=== PATIENT | male | born 2000 | race Caucasian/White ===

== ENCOUNTER 2021-02-28 21:39 | Emergency (ER) | payer BC ==
[2021-02-28 23:07] LABS: BASO # 0.03 (0.02-0.10); EOS % 2.6 % (0.0-4.0); HEMATOCRIT 43.8 % (36.0-47.0); HEMOGLOBIN 14.4 g/dL (12.5-16.1); MEAN CELL VOLUME 88 fl (78-95); MEAN CORPUSCULAR HEMOGLOBIN 29 pg (26-32); MEAN CORPUSCULAR HGB CONC 33 g/dL (33-37); MEAN PLATELET VOLUME 8.8 fl (7.4-10.4); MONO # 0.75 (0.20-0.80); NEU # 7.71 (1.40-6.50); PLATELET COUNT 339 K/mm3 (130-400); RED BLOOD COUNT 4.96 M/mm3 (4.20-5.60); RED CELL DISTRIBUTION WIDTH 11.8 % (11.5-14.5); WHITE BLOOD COUNT 11.4 K/mm3 (4.8-10.8)
[2021-02-28 23:13] LABS: STREP SCREEN NEGATIVE (NEGATIVE)
[2021-02-28 23:49] VITALS: BP 133/75
== END 2021-02-28 23:50 | disposition home or self-care (01) ==
LOC: ED 21:39
PROVIDERS: Family Medicine
DX: J06.9 Acute upper respiratory infection, unspecified (principal); Z20.822 Contact with and (suspected) exposure to COVID-19